=== PATIENT | male | born 1985 | race Caucasian/White ===

== ENCOUNTER 2021-07-30 13:17 | Emergency (ER) | payer SELFPAY ==
[2021-07-30 13:56] VITALS: BP 151/78; PULSE 86; RESP 16; TEMP 36.4; O2SAT 98; BMI 35.9
--- NOTE | 2021-07-30 14:04 | ED.SKABFB ---
HPI - Skin/Abscess/Foreign Bdy General Chief complaint: Skin/Abscess/Foreign Body Stated complaint: rash Time Seen by Provider: 07/30/21 14:03 Source: patient Mode of arrival: ambulatory Limitations: no limitations History of Present Illness HPI narrative: 36 y/o male presenting to the ER with a painful, itchy rash to his bullard and face for the last 3-4 days. He reports using a new soap last week. There is redness and peeling skin with yellowish crusting in areas around the hair follicles of his bullard. Rash has been getting worse. No fever or chills. MD complaint: rash Onset (ago): day(s) (4) Tetanus up to date: yes Location: face and neck Severity: moderate Severity scale (1-10): 5 Quality: burning and pruritic Pain Consistency: constant Relieving factors: none Exacerbating factors: palpation Context: other (new soap) Associated symptoms: denies other symptoms Treatments prior to arrival: antibiotic (he took amoxillicin he had at home) Related Data Previous Rx's Medication Instructions Recorded cephalexin 500 mg capsule 500 mg PO Q6H 7 Days #28 cap 07/30/21 mupirocin 2 % topical ointment 1 appl TOPICAL BID #22 g 07/30/21 Allergies Allergy/AdvReac Type Severity Reaction Status Date / Time shrimp [SHRIMP] Allergy Intermediate ITCHY Unverified 08/05/20 16:19 THROAT Review of Systems Review of Systems: Constitutional: No Fever, No Chills Cardiovascular: No Chest Pain, No SOB Respiratory: No Cough, No Sputum Gastrointestinal: No Nausea, No Vomiting Musculoskeletal: No joint pain, No Myalgias Skin: + Skin Lesions, + rash Neuro: No Dizziness, No Headache Psych: No Anxiety/Panic, No Depression Heme/Lymph: No Bruising, No Lymphadenopathy PMFSH Social History Social History Advance Directives: No Physical Exam Vital Signs: Vital Signs: Last Vital Signs Temp 97.6 F 07/30/21 13:56 Pulse 86 07/30/21 13:56 Resp 16 07/30/21 13:56 BP 151/78 H 07/30/21 13:56 Pulse Ox 98 07/30/21 13:56 Body Mass Index 35.9 Appearance: Alert. Oriented X3. No acute distress. HEENT: face is symmetic, multiple hair follicles of mustache and bullard with erythema and yellowish crusting, no warmth, no pus able to be expressed from any lesion. Neck: Normal inspection. Neck supple. no lymphadenopathy CVS: Normal heart rate and rhythm. Pulses normal. Respiratory: No respiratory distress. Breath sounds normal. Skin: Skin warm and dry. Normal skin color. Normal skin turgor. Extremities: no rashes on his arms Neuro: Oriented X 3. No motor deficit. No sensory deficit. Course Course Course Narrative: 36 y/o male presenting with pruritic and painful rash on his face located along the hair follicles. exam is consistent with folliculitis, possible impetigo. will treat with PO and topical abx. local wound care discussed. recommended follow up with PCP next week if no improvement. stable for d/c home. 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 Critical Care Time Critical Care Time Critical Care Time: No Discharge Plan Discharge Clinical Impression: Folliculitis Patient Disposition: Home, Self-Care Instructions: Folliculitis (ED) Additional Instructions: use hypoallergenic soap and exfoliate your bullard with a gentle exfoliating cleanser - found over the counter at any pharmacy take the prescribed antibiotic and use the prescribed antibiotic cream as directed for the next week follow up with your doctor as needed if you have worsening symptoms despite treatment, call your doctor or come back to the ER for further evaluation Prescriptions: New cephalexin 500 mg capsule 500 mg PO Q6H 7 Days Qty: 28 RF: 0 mupirocin 2 % ointment 1 appl topical BID Qty: 22 RF: 0 Stand Alone Forms: Work/School Release
== END 2021-07-30 14:26 | disposition home or self-care (01) ==
LOC: HO.ED 14:11
PROVIDERS: Emergency Provider Emergency Medicine
DX: L73.9 Follicular disorder, unspecified (principal); R21 Rash and other nonspecific skin eruption
CPT/HCPCS: 99283

== ENCOUNTER 2021-12-21 12:35 | Emergency (ER) | payer MEDICAID, SELFPAY ==
[2021-12-21 12:38] VITALS: BP 153/90; PULSE 96; RESP 18; TEMP 36.1; O2SAT 98; BMI 35.9
[2021-12-21] MEDS: Fluorescein Sodium STRIP 1 STRIP EYE-BOTH (13:52)
[2021-12-21] MEDS: Tetracaine HCl/PF 0.5% Oph Sol 4 ML DROPS 2 DROP EYE-BOTH (13:52)
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
[2021-12-21] MEDS: Erythromycin Base 0.5% Oph Oin 1 GM TUBE 1 CM EYE-BOTH (13:55)
[2021-12-21 15:09] VITALS: BP 155/81; PULSE 70; RESP 16; O2SAT 98
== END 2021-12-21 15:59 | disposition home or self-care (01) ==
PROVIDERS: Emergency Provider Emergency Medicine Emergency Medical Services
DX: T15.01XA Foreign body in cornea, right eye, initial encounter (principal); H57.11 Ocular pain, right eye; X58.XXXA Exposure to other specified factors, initial encounter; Y93.9 Activity, unspecified; Y92.9 Unspecified place or not applicable; Y99.9 Unspecified external cause status; Z79.899 Other long term (current) drug therapy
CPT/HCPCS: 99284; 99291

== ENCOUNTER 2022-10-06 06:43 | Emergency (ER) | payer OTHER, SELFPAY ==
--- NOTE | ~2022-10-06 | XR_ITS ---
EXAMINATION: XR RIBS, RIGHT CLINICAL INFORMATION: Fall COMPARISON: None TECHNIQUE: 3 views of the right ribs were obtained. FINDINGS: Lungs are clear. No consolidation, pneumothorax, or pleural effusion. The cardiomediastinal silhouette and pulmonary vasculature are normal. Osseous structures are unremarkable. Ribs are intact. No fractures are identified. XR/XR ribs RT min 3V w CXR1V IMPRESSION: Clear lungs. No rib fractures.
[2022-10-06 07:11] VITALS: BP 130/96; PULSE 77; RESP 16; TEMP 37.1; O2SAT 96; BMI 35.2
--- NOTE | 2022-10-06 08:22 | ED.FALL ---
HPI - Fall General Chief Complaint: Fall Stated Complaint: Fall/Rib pain -Work Inj Time Seen by Provider: 10/06/22 07:58 Source: patient Mode of arrival: ambulatory Limitations: no limitations History of Present Illness HPI Narrative: 37-year-old male presents to the ER for evaluation of right-sided anterior chest wall pain after he tripped and fell last night at work. Patient works for [employer] and tripped and fell onto the street with his right arm underneath him last night. It knocked the wind out of him. No other injuries. He did not hit his head or lose consciousness. He reports today that he has some anterior chest wall pain over his lower ribs that extends slightly laterally. He is able to take a deep breath. Pain is worse when he is coughing. He is a smoker. MD complaint: fall Onset (ago): hour(s) Fall from: standing Fall witnessed: no Place fall occurred: work Loss of consciousness: none Prolonged down time: no Symptoms prior to fall: none Context: tripped/slipped Location of injury: chest Severity: moderate Severity scale (1-10): 6 Quality: sharp and aching Associated symptoms (after fall): denies Related Data Previous Rx's Medication Instructions Recorded cephalexin 500 mg capsule 500 mg PO Q6H 7 days #28 caps 07/30/21 mupirocin 2 % topical ointment 1 appl topical BID #22 grams 07/30/21 cephalexin 500 mg capsule 500 mg PO Q6H 10 days #40 caps 12/21/21 erythromycin 5 mg/gram (0.5 %) eye 0.5 inch ophthalmic (eye) QID 12/21/21 ointment Corneal abrasion 7 days #3.5 grams oxycodone 5 mg tablet 5 mg PO Q6H PRN pain #14 tabs 12/21/21 naproxen 500 mg tablet 500 mg PO BID PRN pain #20 tabs 10/06/22 Allergies Allergy/AdvReac Type Severity Reaction Status Date / Time shrimp [SHRIMP] Allergy Intermediate ITCHY Unverified 08/05/20 16:19 THROAT Review of Systems Review of Systems: Constitutional: No Fever, No Chills ENT/Mouth: No sore throat, No Rhinorrhea Cardiovascular: + Chest Pain, No SOB, No Orthopnea, No Edema Respiratory: No Cough, No Sputum, No Wheezing, No dyspnea Gastrointestinal: No Nausea, No Vomiting, No abdominal Pain Musculoskeletal: No joint pain, No Myalgias Skin: No Skin Lesions, No rash Neuro: No Weakness, No Dizziness, No Headache Heme/Lymph: No Bruising, No Lymphadenopathy PMFSH Social History Social History Advance Directives: No Advance Directives Information Provided: Yes Physical Exam Vital Signs: Vital Signs: Last Vital Signs Temp 98.7 F 10/06/22 07:11 Pulse 77 10/06/22 07:11 Resp 16 10/06/22 07:11 BP 130/96 H 10/06/22 07:11 Pulse Ox 96 10/06/22 07:11 O2 Del Method 10/06/22 07:11 BMI result Body Mass Index 35.2 Appearance: Alert. Oriented X3. No acute distress. Eyes: Pupils equal, round and reactive to light. ENT: Pharynx normal. Neck: Normal inspection. Neck supple. CVS: Normal heart rate and rhythm. Pulses normal. Respiratory: No respiratory distress. Breath sounds normal. No ecchymosis on chest wall. Tenderness of right chest wall below the breast Abdomen: Soft and nontender. +BS x4 Skin: Skin warm and dry. Normal skin color. Normal skin turgor. No rashes. Extremities: No lower extremity edema. Neuro: Oriented X 3. grossly normal, nonfocal Course Course Course Narrative: 37 yo male presenting with right anterior chest wall and rib pain s/p fall last night. No other injuries. XR is showing no acute rib fractures. No ecchymosis on his chest wall, no exquiste tenderness on exam. Will treat for rib contusion with NSAID. Stable for d/c home. Patient agrees with plan. Discharge Plan Discharge Clinical Impression: Contusion of rib on right side Patient Disposition: Home, Self-Care Instructions: Rib Contusion (ED) Additional Instructions: Your chest x-ray was normal, no rib fractures were appreciated. You may have bruised rib, this takes time for it to heal. Treatment is anti-inflammatory pain medications. Take the prescribed medication as needed for pain. Follow-up with primary care doctor as needed. Do your best to quit smoking. If you develop new or worsening symptoms call 911 or come back to the ER for further evaluation. Prescriptions: New naproxen 500 mg tablet 500 mg PO BID PRN (Reason: pain) Qty: 20 0RF No Action cephalexin 500 mg capsule 500 mg PO Q6H 7 Days Qty: 28 0RF mupirocin 2 % ointment 1 appl topical BID Qty: 22 0RF cephalexin 500 mg capsule 500 mg PO Q6H 10 Days Qty: 40 0RF erythromycin 5 mg/gram (0.5 %) ointment 0.5 inch ophthalmic (eye) QID 7 Days Qty: 3.5 3RF oxycodone 5 mg tablet 5 mg PO Q6H PRN (Reason: pain) Qty: 14 0RF Referrals: [facility] [Provider Group] Stand Alone Forms: Work/School Release Interventions: ED Discharge Assessment Last Done: 10/06/22 09:45 Discharge Date/Time: 10/06/22 09:45
== END 2022-10-06 09:45 | disposition home or self-care (01) ==
PROVIDERS: Emergency Provider Emergency Medicine Emergency Medical Services
DX: R07.81 Pleurodynia (principal); R07.89 Other chest pain
CPT/HCPCS: 71101; 99282; 99283